=== PATIENT | female | born 1990 | race Caucasian/White ===

== ENCOUNTER 2018-02-12 14:36 | Inpatient (IN) ==
--- NOTE | 2018-02-12 16:06 | ED ---
HPI General Chief complaint: Dental/Oral Stated complaint: Throat problem Time Seen by Provider: 02/12/18 15:43 Source: patient Mode of arrival: ambulatory Limitations: no limitations History of Present Illness HPI narrative: Patient is a 27-year-old female presenting to emerge from for evaluation of throat pain. Patient states started a week and half ago. She has been to the emergency department in [place] twice in the last week. She reports being on multiple antibiotics with no improvement in her symptoms. Patient states it difficult to swallow and she spits out oral secretions rather than swallowing them due to the pain. Patient states she feels short of breath when she lays flat. She reports fevers from 100 up to 104. Patient denies any nausea, vomiting, headache, chest pain. Patient states she has had recurrent tonsillitis for years. Onset (ago): week(s) (1) Radiation: non-radiation Severity: severe Severity scale (1-10): 9 Quality: burning and aching Pain Consistency: constant Relieving factors: none Exacerbating factors: eating Associated symptoms: fever/chills and shortness of breath Treatments prior to arrival: other (Antibiotic) Related Data Home Medications Medication Instructions Recorded Confirmed amoxicillin-pot clavulanate Q8H 02/12/18 [Augmentin] prednisone DAILY 02/12/18 Allergies Allergy/AdvReac Type Severity Reaction Status Date / Time No Known Allergies Allergy Unverified 02/12/18 15:39 Review of Systems Except as stated in HPI: all other systems reviewed are negative PMFSH Medical History Medical History Cholecystectomy planned (Acute) Patient denies medical problems (Acute) Social History Social History Substance History: No History of Abuse Second Hand Smoke Exposure: No Smoking Status: Never smoker How Often Do You Have a Drink Containing Alcohol: Never Recent Travel in [place] within the Last 8 Weeks: No Recent Out of Country Travel within the Last 8 Weeks: No Immunization History Tetanus Immunization: <5 Years Tetanus Immunization Year if Known: 2012 Hx Influenza Vaccine This Season: Yes Exam Narrative Exam Narrative: GENERAL: Well-developed, well-nourished, alert female. Presenting in no acute distress. SKIN: Focused skin assessment warm/dry. HEAD: Atraumatic. Normocephalic. EYES: Pupils equal and round. No scleral icterus. No injection or drainage. ENT: No nasal bleeding or discharge. Mucous membranes pink and moist. NECK: Trachea midline. No JVD. CARDIOVASCULAR: Regular rate and rhythm. No murmur appreciated. RESPIRATORY: No accessory muscle use. Clear to auscultation. Breath sounds equal bilaterally. GASTROINTESTINAL: Abdomen soft, non-tender, nondistended. Hepatic and splenic margins not palpable. MUSCULOSKELETAL: No obvious deformities. No clubbing. No cyanosis. No edema. NEUROLOGICAL: Awake and alert. No obvious cranial nerve deficits. Motor grossly within normal limits. Normal speech. PSYCHIATRIC: Appropriate mood and affect; insight and judgment normal. HENMT Throat: uvula midline, abnormal tonsil bilaterally erythema, exudates and hypertrophy and posterior oropharynx abnormal erythema and exudates Course Initial Documented Vital Signs Temperature 99.8 F H 02/12/18 14:57 Pulse Rate 100 H 02/12/18 14:57 Respiratory Rate 17 02/12/18 14:57 Blood Pressure 151/74 H 02/12/18 14:57 Pulse Oximetry 96 02/12/18 14:57 Last Documented Vital Signs Temperature 99.8 F H 02/12/18 14:57 Pulse Rate 100 H 02/12/18 14:57 Respiratory Rate 17 02/12/18 14:57 Blood Pressure 151/74 H 02/12/18 14:57 Pulse Oximetry 97 02/12/18 15:50 Medical Decision Making JULIANN Attestation JULIANN supervised visit: Yes Attestation: I, Dr. Francois, have reviewed the advance practice practitioner's documentation and am in agreement, met with the patient face to face, made the diagnosis, and the medical decision making was done by me. *My assessment and Findings: This patient looks pretty miserable. Her oropharynx has erythema and edema and a grayish film especially on the tonsils. I have never actually seen diphtheria before but this looks like descriptions of diphtheria. Please see Lali Hoang NP's note for a more detailed H&P, final diagnosis and disposition MDM Narrative Medical decision making narrative: Patient is a 27-year-old female presenting for reevaluation of sore throat. Patient has significant tonsillar hypertrophy on exam. Medical records were requested from [facility] in [place]. Airways patent. Labs and imaging ordered and pending. Labs reviewed, no acute findings identified. Reviewed CT scan radiology report. Patient was also seen and evaluated by my attending physician. At this time patient is suspected to have contracted diphtheria. Patient will be started on erythromycin IV. We were then notified by pharmacy that erythromycin was unavailable and patient was switched to azithromycin. Patient was advised on findings and clinical plan. Patient is agreeable. Discussed with Dr. Sandoval, admit accepted. Admit orders placed. Differential Diagnosis Differential Diagnosis: Pharyngitis versus tonsillar abscess versus airway obstruction versus metabolic abnormality other Lab Data Result diagrams: 02/12/18 16:35 02/12/18 16:35 Lab Results 02/12/18 02/12/18 Range/Units 16:35 16:35 WBC 5.7 (4.0-11.0) th/mm3 RBC 4.86 (4.00-5.30) mil/mm3 Hgb 11.7 (11.6-15.3) gm/dL Hct 36.2 (35.0-46.0) % MCV 74.5 L (80.0-100.0) fL MCH 24.1 L (27.0-34.0) pg MCHC 32.4 (32.0-36.0) % RDW 16.9 (11.6-17.2) % Plt Count 226 (150-450) th/mm3 MPV 7.8 (7.0-11.0) fL Neut % (Auto) 67.8 (16.0-70.0) % Lymph % (Auto) 23.5 (9.0-44.0) % [place] % (Auto) 8.5 H (0.0-8.0) % Eos % (Auto) 0.0 (0.0-4.0) % Baso % (Auto) 0.2 (0.0-2.0) % Neut # (Auto) 3.9 (1.8-7.7) th/mm3 Lymph # (Auto) 1.3 (1.0-4.8) th/mm3 [place] # (Auto) 0.5 (0.0-0.9) th/mm3 Eos # (Auto) 0.0 (0.0-0.4) th/mm3 Baso # (Auto) 0.0 (0.0-0.2) th/mm3 WBC Differential . Differential Comment Auto diff final Sodium 140 (136-145) meq/L Potassium 4.2 (3.5-5.1) meq/L Chloride 106 (98-107) meq/L Carbon Dioxide 27.4 (21.0-32.0) meq/L Anion Gap 7 (5-15) meq/L BUN 19 H (7-18) mg/dL Creatinine 0.87 (0.50-1.00) mg/dL Estimated GFR 79 L (>89) mL/min Random Glucose 111 H (74-106) mg/dL Calcium 8.7 (8.5-10.1) mg/dL Total Bilirubin 0.4 (0.2-1.0) mg/dL AST 115 H (15-37) U/L ALT 144 H (10-53) U/L Alkaline Phosphatase 92 (45-117) U/L Total Protein 8.0 (6.4-8.2) g/dL Albumin 3.5 (3.4-5.0) g/dL Imaging Data Radiologist's impression: Soft Tissue Neck CT 02/12/18 15:50 CONCLUSION: 1. Prominent lingual tonsils with minimal nonspecific 5 to 7 mm lymph nodes in right left neck. 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
[2018-02-12 17:03] LABS: Baso % (Auto) 0.2 % (0.0-2.0); Hematocrit 36.2 % (35.0-46.0); Hemoglobin 11.7 gm/dL (11.6-15.3); Lymph # (Auto) 1.3 th/mm3 (1.0-4.8); Lymph % (Auto) 23.5 % (9.0-44.0); Mean Corpuscular HGB Conc 32.4 % (32.0-36.0); Mean Corpuscular Hemoglobin 24.1 pg (27.0-34.0); Mean Corpuscular Volume 74.5 fL (80.0-100.0); Mean Platelet Volume 7.8 fL (7.0-11.0); Mono # (Auto) 0.5 th/mm3 (0.0-0.9); Mono % (Auto) 8.5 % (0.0-8.0); Neut # (Auto) 3.9 th/mm3 (1.8-7.7); Neut % (Auto) 67.8 % (16.0-70.0); Platelet Count 226 th/mm3 (150-450); Red Blood Count 4.86 mil/mm3 (4.00-5.30); Red Cell Distribution Width 16.9 % (11.6-17.2); White Blood Count 5.7 th/mm3 (4.0-11.0)
[2018-02-12 17:13] LABS: Alanine Aminotransferase 144 U/L (10-53); Albumin 3.5 g/dL (3.4-5.0); Anion Gap 7 meq/L (5-15); Aspartate Aminotransferase 115 U/L (15-37); Blood Urea Nitrogen 19 mg/dL (7-18); Calcium 8.7 mg/dL (8.5-10.1); Carbon Dioxide 27.4 meq/L (21.0-32.0); Chloride 106 meq/L (98-107); Glomerular Filtration Rate 79 mL/min (>89); Glucose,Random 111 mg/dL (74-106); Potassium 4.2 meq/L (3.5-5.1); Sodium 140 meq/L (136-145)
[2018-02-12 17:15] LABS: Alkaline Phosphatase 92 U/L (45-117)
--- NOTE | 2018-02-12 17:37 | CT ---
EXAM DATE: 02/12/2018 5:17 PM EDT AGE/SEX: 27 years / Female INDICATIONS: Patient c/o "tonsils are white and hard" CLINICAL DATA: This is the patient's initial encounter. Patient reports that signs and symptoms have been present for 3 days and indicates a pain score of 10/10. MEDICAL/SURGICAL HISTORY: None. Cholecystectomy. RADIATION DOSE: 11.78 CTDI (mGy) COMPARISON: No prior exams available for comparison. TECHNIQUE: Helical acquisition was performed using a multirow detector CT scanner without contrast. Using automated exposure control and adjustment of the mA and/or kV according to patient size, radiat ion dose was kept as low as reasonably achievable to obtain optimal diagnostic quality images. DICOM format image data is available electronically for review and comparison. FINDINGS: Nasopharynx: The nasopharyngeal airway has a normal configuration. No mucosal thickening or mass is seen. Oropharynx: The intrinsic muscles of the tongue are symmetric. Lingual tonsils are prominent. The pr evertebral soft tissues are not thickened. Larynx: The supraglottic, glottic, and infraglottic structures are intact. Parapharyngeal: The parapharyngeal space is intact. Salivary Glands: The parotid and submandibular glands are intact. Lymph Nodes: Minimal nonspecific 5 to 7 mm lymph nodes are noted. Thyroid: Grossly intact. Bones: Unremarkable. CONCLUSION: 1. Prominent lingual tonsils with minimal nonspecific 5 to 7 mm lymph nodes in right left neck. Electronically signed by: Ed Hussein MD 02/12/2018 5:36 PM EDT
[2018-02-12] MEDS ORDERED: SODIUM CHLOR 0.9% IV.SIG ONE (17:47)
[2018-02-12] MEDS ORDERED: Sod Chloride 0.9% Inj 1,000 ML IV.SIG ONE (17:47)
[2018-02-12] MEDS ORDERED: ERYTHROMYCIN IV.SIG ONE (17:47)
[2018-02-12] MEDS ORDERED: Azithromycin Inj 500 MG in Sodium Chlor 0.9% Inj 250 ML IV.SIG ONE (17:59)
--- NOTE | 2018-02-12 18:02 | XR ---
EXAM DATE: 02/12/2018 5:58 PM EDT AGE/SEX: 27 years / Female INDICATIONS: Short of breath, cough CLINICAL DATA: This is the patient's initial encounter. Patient reports that signs and symptoms have been present for 2 weeks and indicates a pain score of 0/10. MEDICAL/SURGICAL HISTORY: None. Cholecystectomy. COMPARISON: No prior exams available for comparison. FINDINGS: A single AP view of the chest demonstrates the lungs to be symmetrically aerated without evidence of mass, infiltrate or effusion. The cardiomediastinal contours are unremarkable. Osseous structures a re intact. CONCLUSION: Negative for acute process Electronically signed by: Ed Hussein MD 02/12/2018 6:01 PM EDT
[2018-02-12] MEDS ORDERED: Bisacodyl 10 MG Supp RECTAL PRN (18:23)
[2018-02-12] MEDS ORDERED: Dexamethasone Inj 20 MG/5 ML Vial IV.PUSH ONE (19:19)
--- NOTE | 2018-02-12 19:25 | P.HPIM ---
History of Present Illness Primary Care Physician: No Primary Care Physician History of Present Illness: This is a 27-year-old female w/ a PMH of Recurrent Tonsillitis who presented to the ER w/ complaints of severe sore throat and decreased PO intake due to pain x2 wks. States she usually has 2-3 episodes like this every year w/ the same symptoms. Was seen at [facility] on several occasions for similar complaints, initially on Amoxicillin, then switched to Augment, later switched to Clarithromycin. Reports associated fever/chills in addition to nausea and vomiting. Unable to swallow liquids due to severe pain. On arrival, BP 151/74 , HR 100, O2 sat 96% on RA, Temp 99.8. CBC unremarkable. BUN 19, GFR 79. LFTs mildly elevated, no previous labs for comparison. CXR with no acute findings. CT Neck w/ prominent lingual tonsil w/ minimal nonspecific 5-7mm lymph nodes. On exam in ER, pt noted to have greyish film over tonsil and thought to have possible Diptheria, however pt has been vaccinated. Strep negative, Throat Culture pending. S/p Zithro in ER - Diagnosis (1) Tonsillitis Review of Systems All other systems reviewed negative except as stated in HPI PMFSH - History History Provided By: Patient - Medical History Medical History: Medical History (Last Reviewed 02/12/18 @ 16:04 by SUSY Woo) Cholecystectomy planned Patient denies medical problems - Tobacco History Second Hand Smoke Exposure: No Smoking Status: Never smoker - Alcohol History How Often Do You Have a Drink Containing Alcohol: Never - Substance Use History Substance History: No History of Abuse - Travel History Recent Travel in the USA Within the Last 8 Weeks: No Recent Travel Out of the Country Within the Last 8 Weeks: No - Immunization History Tetanus Immunization: <5 Years Tetanus Immunization Year if Known: 2012 Hx Influenza Vaccine This Season: Yes Medications and Allergies Active Medications: Active Medications Al Hydroxide/Mg Hydroxide (Milk Of Magnesia Liq) 30 ml PO Q12H PRN PRN Reason: Mild Constipation Bisacodyl (Dulcolax Supp) 10 mg RECTAL DAILY PRN PRN Reason: SEVERE CONSITIPATION Sodium Chloride (Ns Inj) 1,000 mls @ 100 mls/hr IV.CONT .Q10H DIANDRA Lactulose (Lactulose Liq) 30 ml PO DAILY PRN PRN Reason: SEVERE CONSITIPATION Sennosides (Senokot) 17.2 mg PO Q12H PRN PRN Reason: Moderate Constipation Sodium Chloride (Ns Flush) 2 ml IV.FLUSH PRN PRN PRN Reason: FLUSH AFTER USING IV ACCESS Allergies Allergy/AdvReac Type Severity Reaction Status Date / Time No Known Allergies Allergy Unverified 02/12/18 15:39 Home Medications Medication Instructions Recorded Confirmed Type amoxicillin-pot clavulanate Q8H 02/12/18 History [Augmentin] prednisone DAILY 02/12/18 History Exam Vital signs: Vital Signs 02/12/18 14:57 02/12/18 15:50 Temperature 99.8 F H Pulse Rate 100 H Respiratory Rate 17 Blood Pressure 151/74 H Pulse Oximetry 96 97 Intake & Output 02/12/18 02/12/18 02/13/18 06:59 18:59 06:59 Weight 85.275 kg Narrative: PE: GENERAL: Young white female in mild distress due to pain and nausea. HEENT: PERRLA, EOMI. No scleral icterus or conjunctival pallor. No lid lag or facial droop. Neck swelling, +tenderness to palpation, +pharyngeal erythema and enlarged tonsils, +exudate CARDIOVASCULAR: Regular rate and rhythm. No obvious murmurs to auscultation. No chest tenderness to palpation. RESPIRATORY: No obvious rhonchi or wheezing. Clear to auscultation. Breath sounds equal bilaterally. GASTROINTESTINAL: Abdomen soft, non-tender, nondistended. BS normal. MUSCULOSKELETAL: Extremities without clubbing, cyanosis, or edema. No obvious deformities. NEUROLOGICAL: Awake, alert and oriented x4. No focal neurologic deficits. Moving both upper and lower extremities spontaneously. Results - Labs CBC & Chem 7: 02/12/18 16:35 02/12/18 16:35 Labs: Short CBC 02/12/18 Range/Units 16:35 WBC 5.7 (4.0-11.0) th/mm3 Hgb 11.7 (11.6-15.3) gm/dL Hct 36.2 (35.0-46.0) % Plt Count 226 (150-450) th/mm3 BMP 02/12/18 16:35 Sodium 140 Potassium 4.2 Chloride 106 Carbon Dioxide 27.4 BUN 19 H Creatinine 0.87 Calcium 8.7 Liver Function 02/12/18 Range/Units 16:35 Total Bilirubin 0.4 (0.2-1.0) mg/dL AST 115 H (15-37) U/L ALT 144 H (10-53) U/L Alkaline Phosphatase 92 (45-117) U/L Albumin 3.5 (3.4-5.0) g/dL - Imaging Impressions Soft Tissue Neck CT 02/12/18 15:50 CONCLUSION: 1. Prominent lingual tonsils with minimal nonspecific 5 to 7 mm lymph nodes in right left neck. Chest X-Ray 02/12/18 17:46 CONCLUSION: Negative for acute process Caprini VTE Risk Assessment Caprini VTE Risk Assessment: No/Low Risk (score <= 1) Caprini Risk Assessment Model: Point Value = 1 Point Value = 2 Point Value = 3 Point Value = 5 Age 41-60 Minor surgery BMI > 25 kg/m2 Swollen legs Varicose veins or History of unexplained or recurrent spontaneous Oral contraceptives or hormone replacement Sepsis (< 1 month) Serious lung disease, including pneumonia (< 1 month) Abnormal pulmonary function Acute myocardial infarction Congestive heart failure (< 1 month) History of inflammatory bowel disease Medical patient at bed rest Age 61-74 Arthroscopic surgery Major open surgery (> 45 min) Laparoscopic surgery (> 45 min) Malignancy Confined to bed (> 72 hours) Immobilizing plaster cast Central venous access Age >= 75 History of VTE Family history of VTE Factor V Leiden Prothrombin [id number] Lupus anticoagulant Anticardiolipin antibodies Elevated serum homocysteine Heparin-induced thrombocytopenia Other congenital or acquired thrombophilia Stroke (< 1 month) Elective arthroplasty Hip, pelvis, or leg fracture Acute spinal cord injury (< 1 month) Prophylaxis Regimen: Total Risk Factor Score Risk Level Prophylaxis Regimen 0-1 Low Early ambulation 2 Moderate Order ONE of the following: *Sequential Compression Device (SCD) *Heparin 5000 units SQ BID 3-4 Higher Order ONE of the following medications: *Heparin 5000 units SQ TID *Enoxaparin/Lovenox 40 mg SQ daily (WT < 150 kg, CrCl > 30 mL/min) *Enoxaparin/Lovenox 30 mg SQ daily (WT < 150 kg, CrCl > 10-29 mL/min) *Enoxaparin/Lovenox 30 mg SQ BID (WT < 150 kg, CrCl > 30 mL/min) AND/OR *Sequential Compression Device (SCD) 5 or more Highest Order ONE of the following medications: *Heparin 5000 units SQ TID (Preferred with Epidurals) *Enoxaparin/Lovenox 40 mg SQ daily (WT < 150 kg, CrCl > 30 mL/min) *Enoxaparin/Lovenox 30 mg SQ daily (WT < 150 kg, CrCl > 10-29 mL/min) *Enoxaparin/Lovenox 30 mg SQ BID (WT < 150 kg, CrCl > 30 mL/min) AND *Sequential Compression Device (SCD) Assessment and Plan - Assessment (1) Tonsillitis Code(s): J03.90 - Acute tonsillitis, unspecified Status: Acute - Plan A/P: 1. Tonsillitis: w/ pharyngitis. Symptoms ongoing x2wks, failed tx on Amoxicillin, Augment and Clarithromycin. ER physician noted greyish film and concern for Diptheria, however prob unlikely as very rare and pt reports being vaccinated. Also reports similar episodes of tonsillitis approx 2-3 times per year. But in light of concern will continue w/ Isolation, follow up throat culture, Consult ID as needed if cultures positive for Diptheria. Erythromycin IV not available in pharmacy, will continue w/ IV Zithro. Viscous Lidocaine prn , Decadron IV. Will Consult ENT for further eval/surgical intervention. 2. DVT Prophylaxis: SCD/Teds 3. Social work for d/c planning as needed 4. Case discussed w/ ER physician at length, labs/records/imaging reviewed by me.
[2018-02-13] MEDS ORDERED: ERYTHROMYCIN IV.SIG SCH ×2
[2018-02-13] MEDS ORDERED: SODIUM CHLOR 0.9% IV.SIG SCH ×2
[2018-02-13] MEDS: Sod Chloride 0.9% Inj 1,000 ML IV.CONT SCH ×2 (01:07→05:59)
[2018-02-13 06:21] LABS: Baso % (Auto) 0.4 % (0.0-2.0); Eos % (Auto) 0.4 % (0.0-4.0); Hematocrit 32.8 % (35.0-46.0); Lymph # (Auto) 2.2 th/mm3 (1.0-4.8); Lymph % (Auto) 36.8 % (9.0-44.0); Mean Corpuscular HGB Conc 33.5 % (32.0-36.0); Mean Corpuscular Hemoglobin 24.6 pg (27.0-34.0); Mean Corpuscular Volume 73.5 fL (80.0-100.0); Mean Platelet Volume 7.7 fL (7.0-11.0); Mono # (Auto) 0.7 th/mm3 (0.0-0.9); Mono % (Auto) 12.1 % (0.0-8.0); Neut % (Auto) 50.3 % (16.0-70.0); Platelet Count 189 th/mm3 (150-450); Red Blood Count 4.46 mil/mm3 (4.00-5.30); Red Cell Distribution Width 16.7 % (11.6-17.2)
[2018-02-13 07:00] LABS: Albumin 3.1 g/dL (3.4-5.0); Anion Gap 7 meq/L (5-15); Aspartate Aminotransferase 93 U/L (15-37); Blood Urea Nitrogen 19 mg/dL (7-18); Carbon Dioxide 26.8 meq/L (21.0-32.0); Chloride 107 meq/L (98-107); Glomerular Filtration Rate Greater Than 89 mL/min (>89); Glucose,Random 80 mg/dL (74-106); Potassium 3.7 meq/L (3.5-5.1); Sodium 141 meq/L (136-145)
[2018-02-13 07:01] LABS: Alanine Aminotransferase 137 U/L (10-53)
[2018-02-13 07:04] LABS: Alkaline Phosphatase 84 U/L (45-117); Total Protein 7.3 g/dL (6.4-8.2)
--- NOTE | 2018-02-13 09:54 | P.PN ---
Subjective Interval history: Follow-up sore throat. Improving throat discomfort requesting food. Discussed with nurse, ENT has recommended to continue IV antibiotics for 1-2 days Physical Exam Vital signs: Vital Signs 02/12/18 14:57 02/12/18 15:50 02/12/18 20:00 Temperature 99.8 F H 97.9 F Pulse Rate 100 H 78 Respiratory Rate 17 17 Blood Pressure 151/74 H 130/60 Pulse Oximetry 96 97 97 02/13/18 00:00 02/13/18 04:00 Temperature 97.9 F 98.0 F Pulse Rate 74 70 Respiratory Rate 16 14 Blood Pressure 133/65 120/60 Pulse Oximetry 96 95 Intake & Output 02/12/18 02/13/18 02/13/18 18:59 06:59 18:59 Weight 85.275 kg Narrative: GENERAL: Young white female in mild distress due to pain and nausea. HEENT: PERRLA, EOMI. No scleral icterus or conjunctival pallor. No lid lag or facial droop. Neck swelling, +tenderness to palpation, +pharyngeal erythema and enlarged tonsils, +exudate CARDIOVASCULAR: Regular rate and rhythm. No obvious murmurs to auscultation. No chest tenderness to palpation. RESPIRATORY: No obvious rhonchi or wheezing. Clear to auscultation. Breath sounds equal bilaterally. GASTROINTESTINAL: Abdomen soft, non-tender, nondistended. BS normal. MUSCULOSKELETAL: Extremities without clubbing, cyanosis, or edema. No obvious deformities. NEUROLOGICAL: Awake, alert and oriented x4. No focal neurologic deficits. Moving both upper and lower extremities spontaneously. Results - Labs CBC & Chem 7: 02/13/18 05:49 02/13/18 05:49 Laboratory Results - last 24 hr 02/12/18 02/12/18 02/13/18 16:35 16:35 05:49 WBC 5.7 6.0 RBC 4.86 4.46 Hgb 11.7 11.0 L Hct 36.2 32.8 L MCV 74.5 L 73.5 L MCH 24.1 L 24.6 L MCHC 32.4 33.5 RDW 16.9 16.7 Plt Count 226 189 MPV 7.8 7.7 Neut % (Auto) 67.8 50.3 Lymph % (Auto) 23.5 36.8 [place] % (Auto) 8.5 H 12.1 H Eos % (Auto) 0.0 0.4 Baso % (Auto) 0.2 0.4 Neut # (Auto) 3.9 3.0 Lymph # (Auto) 1.3 2.2 [place] # (Auto) 0.5 0.7 Eos # (Auto) 0.0 0.0 Baso # (Auto) 0.0 0.0 WBC Differential . . Differential Comment Auto diff final Auto diff final Sodium 140 Potassium 4.2 Chloride 106 Carbon Dioxide 27.4 Anion Gap 7 BUN 19 H Creatinine 0.87 Estimated GFR 79 L Random Glucose 111 H Calcium 8.7 Total Bilirubin 0.4 AST 115 H ALT 144 H Alkaline Phosphatase 92 Total Protein 8.0 Albumin 3.5 02/13/18 05:49 WBC RBC Hgb Hct MCV MCH MCHC RDW Plt Count MPV Neut % (Auto) Lymph % (Auto) [place] % (Auto) Eos % (Auto) Baso % (Auto) Neut # (Auto) Lymph # (Auto) [place] # (Auto) Eos # (Auto) Baso # (Auto) WBC Differential Differential Comment Sodium 141 Potassium 3.7 Chloride 107 Carbon Dioxide 26.8 Anion Gap 7 BUN 19 H Creatinine 0.73 Estimated GFR Greater than 89 Random Glucose 80 Calcium 8.0 L Total Bilirubin 0.4 AST 93 H ALT 137 H Alkaline Phosphatase 84 Total Protein 7.3 D Albumin 3.1 L Microbiology 02/12/18 16:45 Throat Group A Streptococcus Screen (COREY) - Final - Imaging Impressions Soft Tissue Neck CT 02/12/18 15:50 CONCLUSION: 1. Prominent lingual tonsils with minimal nonspecific 5 to 7 mm lymph nodes in right left neck. Chest X-Ray 02/12/18 17:46 CONCLUSION: Negative for acute process - Procedures none Assessment and Plan - Assessment (1) Tonsillitis Code(s): J03.90 - Acute tonsillitis, unspecified Status: Acute - Plan 1. Tonsillitis: w/ pharyngitis. Symptoms ongoing x2wks, failed tx on Amoxicillin, Augment and Clarithromycin. ER physician noted greyish film and concern for Diptheria, however prob unlikely as very rare and pt reports being vaccinated. Also reports similar episodes of tonsillitis approx 2-3 times per year. But in light of concern will continue w/ Isolation, follow up throat culture, Consult ID as needed if cultures positive for Diphtheria. Erythromycin IV not available in pharmacy, will continue w/ IV Zithro. Viscous Lidocaine prn, Decadron IV. Will Consult ENT for further eval/surgical intervention. In light of abnormal LFTs, check monospot r/o Infectious mononucleosis 2. DVT Prophylaxis: SCD/Teds Discharge Planning: Home in 1-2 days
[2018-02-13 12:32] LABS: Mono Screen Neg (Neg)
--- NOTE | 2018-02-13 17:50 | US ---
EXAM DATE: 02/13/2018 5:43 PM EDT AGE/SEX: 27 years / Female INDICATIONS: Abnormal liver function tests. CLINICAL DATA: This is the patient's initial encounter. Patient reports that signs and symptoms have been present for 1 day and indicates a pain score of 0/10. MEDICAL/SURGICAL HISTORY: . Abnormal liver function tests. Cholecystectomy. COMPARISON: No prior exams available for comparison. MEASUREMENTS: Liver:__ 15.6 cm. Common Bile Duct:__ 7mm. Right Kidney:__ 10.7 x 4.7 x 5.5 cm. FINDINGS: Liver: Increased echotexture without focal lesion or ductal dilation. Portal Vein: Hepatopedal flow seen in portal vein. Common Duct: No intraluminal mass or stone visualized. Prominent in caliber up to 7.2 mm. This may be related to a reservoir effect from cholecystectomy. Gallbladder: Surgically absent. Pancreas: The visualized portions are within normal limits Right Kidney: Normal echotexture and cortical thickness. No mass or hydronephrosis. Other: The spleen measures up to 14.9 cm. CONCLUSION: 1. Mildly prominent common bile duct in this patient who is status post cholecystectomy. 2. Splenomegaly. Electronically signed by: Tate Rayo MD 02/13/2018 5:49 PM EDT
[2018-02-13] MEDS: Azithromycin Inj 500 MG in Sodium Chlor 0.9% Inj 250 ML IV.SIG SCH (20:30)
[2018-02-13 21:15] LABS: Hepatitits B Surface Antigen Nonreactive (Nonreactive)
[2018-02-13 21:42] LABS: Hepatitis A IgM Antibody Nonreactive (Nonreactive)
[2018-02-14] MEDS: Sod Chloride 0.9% Inj 1,000 ML IV.CONT SCH ×3 (05:10→13:39)
--- NOTE | 2018-02-14 07:38 | MD ---
cc: Geoff Ta MD DATE OF DISCHARGE: HISTORY: This is a 29-year-old female with 3 episodes of tonsillitis every year or more for 15 years in a row with a severe episode of tonsillitis having difficulty taking food or drink. PHYSICAL EXAM: Today, a well-appearing female in no acute distress tolerating own secretions. Excellent airway. No hot potato voice. EARS: WNL. NOSE: Nasal cavity WNL. ORAL CAVITY: Reveals moderately severe bilateral follicular tonsillitis without uvular deviation. No masses. Flexible exam, good vocal cord mobility. No airway obstruction. No lingual tonsillitis. NECK: Soft, supple, but tender. IMPRESSION: Severe follicular tonsillitis. PLAN: Continue IV steroids and antibiotics. Consideration for tonsillectomy in 6-8 weeks. Outpatient followup. MD JORGE Mcneill/MAHOGANY , 07:27 AM , 07:32 AM
[2018-02-14 07:59] LABS: Albumin 2.8 g/dL (3.4-5.0); Anion Gap 9 meq/L (5-15); Aspartate Aminotransferase 43 U/L (15-37); Blood Urea Nitrogen 10 mg/dL (7-18); Calcium 7.9 mg/dL (8.5-10.1); Chloride 106 meq/L (98-107); Glomerular Filtration Rate Greater Than 89 mL/min (>89); Glucose,Random 80 mg/dL (74-106); Potassium 3.9 meq/L (3.5-5.1); Sodium 138 meq/L (136-145)
[2018-02-14 08:01] LABS: Alanine Aminotransferase 102 U/L (10-53)
[2018-02-14 08:02] LABS: Alkaline Phosphatase 80 U/L (45-117); Total Protein 6.9 g/dL (6.4-8.2)
--- NOTE | 2018-02-14 11:54 | P.PN ---
Subjective Interval history: Follow-up visit pharyngitis, severe tonsillitis. Patient seen and examined today. Continues to report cough. Not expectorating anything. Continues to complain of painful swallowing. Unable to tolerate current diet with grits. Discussed with patient we will place her on liquid diet. Has not tried Jell-O yet. Reports pain and discomfort right facial side towards the neck. Continues to have edema on that side. Denies SOB/ dyspnea. Denies chest pain, palpitations, headaches, dizziness. Denies fevers, chills, n/v/d. Denies dysuria. Complaints of constipation. Physical Exam Vital signs: Vital Signs 02/13/18 12:00 02/13/18 15:49 02/13/18 15:57 Temperature 97.8 F 98.5 F Pulse Rate 90 85 Respiratory Rate 18 20 Blood Pressure 121/74 137/76 126/83 Pulse Oximetry 94 L 96 02/13/18 20:00 02/14/18 00:00 02/14/18 04:00 Temperature 99.1 F 98.3 F Pulse Rate 89 88 81 Respiratory Rate 18 16 18 Blood Pressure 141/82 H 129/85 121/79 Pulse Oximetry 97 96 02/14/18 08:56 Temperature 98.2 F Pulse Rate 71 Respiratory Rate 18 Blood Pressure 135/83 Pulse Oximetry 98 Intake & Output 02/13/18 02/14/18 02/14/18 18:59 06:59 18:59 Intake Total 1000 / 1000 250 / 250 Balance 1000 / 1000 250 / 250 Intake: IV 1000 / 1000 250 / 250 NS Inj 1,000 ML @ 100 mls/hr IV 1000 / 1000 .CONT .Q10H DIANDRA Rx#:[id number] Azithromycin Inj 500 MG In NS 250 / 250 Inj 250 ML @ 250 mls/hr IV.SIG Q24H DIANDR[facility] Rx#:[id number] Oral 0 / 0 Other: # Voids 1 1 Date of Last Bowel Movement 02/11/18 Narrative: GENERAL: Young white female in mild distress due to pain and nausea. HEENT: PERRLA, EOMI. No scleral icterus or conjunctival pallor. No lid lag or facial droop. Neck swelling, +tenderness to palpation, +pharyngeal erythema and enlarged tonsils, +exudate. Positive lymph adenopathy CARDIOVASCULAR: Regular rate and rhythm. No obvious murmurs to auscultation. No chest tenderness to palpation. RESPIRATORY: No obvious rhonchi or wheezing. Clear to auscultation. Breath sounds equal bilaterally. GASTROINTESTINAL: Abdomen soft, non-tender, nondistended. BS normal. MUSCULOSKELETAL: Extremities without clubbing, cyanosis, or edema. No obvious deformities. NEUROLOGICAL: Awake, alert and oriented x4. No focal neurologic deficits. Moving both upper and lower extremities spontaneously. Results - Labs CBC & Chem 7: 02/13/18 05:49 02/14/18 06:00 Laboratory Results - last 24 hr 02/13/18 02/13/18 02/14/18 11:27 15:00 06:00 Sodium 138 Potassium 3.9 Chloride 106 Carbon Dioxide 23.0 Anion Gap 9 BUN 10 Creatinine 0.60 Estimated GFR Greater than 89 Random Glucose 80 Calcium 7.9 L Total Bilirubin 0.4 AST 43 H ALT 102 H Alkaline Phosphatase 80 Total Protein 6.9 Albumin 2.8 L Hepatitis A IgM Ab Nonreactive Hep Bs Antigen Nonreactive Hep B Core IgM Ab Nonreactive Hep C IgG Ab Nonreactive Monoscreen Neg Microbiology 02/12/18 16:45 Throat Throat Culture - Final - Imaging Impressions Liver Ultrasound 02/13/18 00:00 CONCLUSION: 1. Mildly prominent common bile duct in this patient who is status post cholecystectomy. 2. Splenomegaly. - Procedures none Assessment and Plan - Assessment (1) Tonsillitis Code(s): J03.90 - Acute tonsillitis, unspecified Status: Acute - Plan 27-year-old female w/ a PMH of Recurrent Tonsillitis who presented to the ER w/ complaints of severe sore throat and decreased PO intake due to pain x2 wks Tonsillitis w/ pharyngitis. Severe follicular tonsillitis -Symptoms ongoing x2wks, failed tx on Amoxicillin, Augment and Clarithromycin. -ER physician noted greyish film and concern for Diptheria, however prob unlikely as very rare and pt reports being vaccinated. continue w/ Isolation -Reports similar episodes of tonsillitis approx 2-3 times per year. -Negative for group a streptococcus screen, negative for throat culture. Negative mono. -Severe lymphadenopathy. Odynophagia. -Continue on IV azithromycin. Consult ID for further evaluation recommendation -Patient was seen by Dr. Ta ENT recommends to continue IV steroids and IV antibiotics. Plan for tonsillectomy 6-8 weeks. -Continue lidocaine as needed. Liquid diet. Constipation -Bowel regimen DVT Prophylaxis: SCD/Teds Code Status: Full code Discussed Condition With: Patient, nursing Discharge Planning: Plan to DC home when clinically improved.
--- NOTE | 2018-02-14 16:34 | P.CONID ---
History of Present Illness Service: ID Consult date: 02/14/18 Requesting Physician: Van Kim Reason for Consult: pharyngitis Primary Care Provider: No Primary Care Physician History of Present Illness: 27 yo female with no past med history presentes with 2 weeks of persistent sore throat, low grade fever and neck pain and swelling Her neck is swollen two During these 2 weeks sjhe was treated with multiple abx including azithromycin, clindamycin and augmentin. Alll without improvement She constantly cough thru the exam She was tested for GAS, monospot and clx and they all negative throat clx with nl resp jaydon NO sick exposure Lives with 3 children 2-6 y.o. They are healthy Recent (October) travel to [place] reason She was tested for HIV in October since she frequently donates egg. Her hIV test is negative MIld anemia She also c/o vaginal discharge and dyscomfort Pt states she is up to date on her immunisations Review of Systems All other systems reviewed negative except as stated in HPI PMFSH - History History Provided By: Patient - Medical History Medical History: Medical History (Last Reviewed 04/10/18 @ 12:48 by Joelle Joel MD) Cholecystectomy planned Patient denies medical problems - Family History Family History: Family History (Last Updated 04/10/18 @ 12:48 by Joelle Joel MD) Other No pertinent family history - Social History I have reviewed the patient's Social History: Yes - Tobacco History Second Hand Smoke Exposure: No Smoking Status: Never smoker - Alcohol History How Often Do You Have a Drink Containing Alcohol: Never - Substance Use History Substance History: No History of Abuse - Travel History Recent Travel in the [place] Within the Last 8 Weeks: No Recent Travel Out of the Country Within the Last 8 Weeks: No - Immunization History Tetanus Immunization: <5 Years Tetanus Immunization Year if Known: 2012 Hx Influenza Vaccine This Season: Yes Medications and Allergies Active Medications: Active Medications Al Hydroxide/Mg Hydroxide (Milk Of Magnesia Liq) 30 ml PO Q12H PRN PRN Reason: Mild Constipation Bisacodyl (Dulcolax Supp) 10 mg RECTAL DAILY PRN PRN Reason: SEVERE CONSITIPATION Dexamethasone Sodium Phosphate (Decadron Inj) 2 mg IV.PUSH Q8HR DIAN[facility] Last Admin: 02/14/18 13:39 Dose: 2 mg Sodium Chloride (Ns Inj) 1,000 mls @ 100 mls/hr IV.CONT .[facility]10H [facility] Last Admin: 02/14/18 13:39 Dose: 100 mls/hr Azithromycin 500 mg/ Sodium (Chloride) 250 mls @ 250 mls/hr IV.SIG Q24H [facility] Last Infusion: 02/13/18 21:30 Dose: Infused Lactulose (Lactulose Liq) 30 ml PO DAILY PRN PRN Reason: SEVERE CONSITIPATION Lidocaine HCl (Xylocaine 2% Viscous) 15 ml SWISH-SWAL Q4H PRN PRN Reason: SORE THROAT Last Admin: 02/13/18 05:58 Dose: 15 ml Ondansetron HCl (Zofran Odt) 4 mg PO Q6H PRN PRN Reason: NAUSEA/VOMITING Prochlorperazine Edisylate (Compazine Inj) 10 mg IV.PUSH Q6H PRN PRN Reason: NAUSEA/VOMITING Sennosides (Senokot) 17.2 mg PO Q12H PRN PRN Reason: Moderate Constipation Sodium Chloride (Ns Flush) 2 ml IV.FLUSH PRN PRN PRN Reason: FLUSH AFTER USING IV ACCESS Allergies Allergy/AdvReac Type Severity Reaction Status Date / Time No Known Allergies Allergy Unverified 02/12/18 15:39 Exam Vital signs: Vital Signs 02/13/18 15:49 02/13/18 15:57 02/13/18 20:00 Temperature 98.5 F 99.1 F Pulse Rate 85 89 Respiratory Rate 20 18 Blood Pressure 137/76 126/83 141/82 H Pulse Oximetry 96 97 02/14/18 00:00 02/14/18 04:00 02/14/18 08:56 Temperature 98.3 F 98.2 F Pulse Rate 88 81 71 Respiratory Rate 16 18 18 Blood Pressure 129/85 121/79 135/83 Pulse Oximetry 96 98 02/14/18 12:00 Temperature 98.2 F Pulse Rate 85 Respiratory Rate 16 Blood Pressure 123/78 Pulse Oximetry 98 Intake & Output 02/13/18 02/14/18 02/14/18 18:59 06:59 18:59 Intake Total 1000 / 1000 250 / 250 1000 / 1000 Balance 1000 / 1000 250 / 250 1000 / 1000 Intake: IV 1000 / 1000 250 / 250 1000 / 1000 NS Inj 1,000 ML @ 100 mls/hr IV 1000 / 1000 1000 / 1000 .CONT .Q10H [facility] Rx#:[id number] Azithromycin Inj 500 MG In NS 250 / 250 Inj 250 ML @ 250 mls/hr IV.SIG Q24H [facility] Rx#:[id number] Oral 0 / 0 Other: # Voids 1 1 Date of Last Bowel Movement 02/11/18 - Constitutional no acute distress, obese - Routine HEENT Exam Head: Present: normocephalic, atraumatic Eye: Present: EOMI, PERRL ENT: Present: mucous membranes moist, external ear normal Comments: Markedly enlarged tosils covereg with graham membranes, more prominnet on the R tonsil + shotty lymphadenopathy - Routine Neck Exam Present: supple, full ROM, lymphadenopathy (shotty b/l) - Routine Respiratory Exam Present: CTA bilaterally Comments: good effort - Routine Cardiovascular Exam Present: RRR, S1, S2 Comments: no murmurs, rubs gallops well perfused perifery - Routine Abdominal Exam Present: soft, normoactive bowel sounds Comments: no palpabler spleno or hepatomegaly no masses - Routine Exam External: Present: normal urethra appearance, vulvar erythema, discharge - Routine Extremities Exam Comments: mno cyanosis. clubbbing or edema - Routine Skin Exam Present: intact Comments: no rash + tender blister on R foot - Routine Neurological Exam Present: alert, oriented X3, CN II-XII intact, moving all extremities, vision grossly intact, hearing grossly intact, normal speech - Routine Psychiatric Exam Present: normal affect, cooperative Results - Labs CBC & Chem 7: 02/17/18 04:00 02/17/18 04:00 Labs: Laboratory Results - last 24 hr 02/13/18 02/14/18 15:00 06:00 Sodium 138 Potassium 3.9 Chloride 106 Carbon Dioxide 23.0 Anion Gap 9 BUN 10 Creatinine 0.60 Estimated GFR Greater than 89 Random Glucose 80 Calcium 7.9 L Total Bilirubin 0.4 AST 43 H ALT 102 H Alkaline Phosphatase 80 Total Protein 6.9 Albumin 2.8 L Hepatitis A IgM Ab Nonreactive Hep Bs Antigen Nonreactive Hep B Core IgM Ab Nonreactive Hep C IgG Ab Nonreactive - Imaging Impressions Soft Tissue Neck CT 02/12/18 15:50 CONCLUSION: 1. Prominent lingual tonsils with minimal nonspecific 5 to 7 mm lymph nodes in right left neck. Chest X-Ray 02/12/18 17:46 CONCLUSION: Negative for acute process Liver Ultrasound 02/13/18 00:00 CONCLUSION: 1. Mildly prominent common bile duct in this patient who is status post cholecystectomy. 2. Splenomegaly. Assessment and Plan - Plan 2 weeks acute pharyngitis non resolving on multiplae abx, splenomegaly Differentila include tonsilitist, including viral dyphtheria uinlikely in this immunised pt will cont azithro will add Unasyn HIV, including r/o acute retroviral sd EKG
[2018-02-14] MEDS: Ampicillin/Sulbactam Inj 3 GM in Sodium Chloride 0.9% Inj 100 ML IV.SIG SCH ×2 (16:53→22:45)
[2018-02-14] MEDS: Nystatin/Diphenhydramine/Lidocaine Mouthwash (Adult) 120 ML Botttle SWISH-SWAL SCH ×2 (18:18→22:11)
[2018-02-14] MEDS: Azithromycin Inj 500 MG in Sodium Chlor 0.9% Inj 250 ML IV.SIG SCH (20:37)
[2018-02-14] MEDS: Senna/Docusate Sodium 8.6/50 MG Tablet PO SCH (22:13)
[2018-02-15] MEDS: Sod Chloride 0.9% Inj 1,000 ML IV.CONT SCH ×3 (01:26→20:03)
[2018-02-15 05:18] LABS: Baso % (Auto) 0.4 % (0.0-2.0); Eos % (Auto) 0.1 % (0.0-4.0); Hematocrit 33.6 % (35.0-46.0); Hemoglobin 10.7 gm/dL (11.6-15.3); Lymph # (Auto) 1.7 th/mm3 (1.0-4.8); Lymph % (Auto) 21.7 % (9.0-44.0); Mean Corpuscular HGB Conc 31.9 % (32.0-36.0); Mean Corpuscular Hemoglobin 23.7 pg (27.0-34.0); Mean Corpuscular Volume 74.2 fL (80.0-100.0); Mean Platelet Volume 7.8 fL (7.0-11.0); Mono # (Auto) 0.7 th/mm3 (0.0-0.9); Mono % (Auto) 9.7 % (0.0-8.0); Neut # (Auto) 5.3 th/mm3 (1.8-7.7); Neut % (Auto) 68.1 % (16.0-70.0); Platelet Count 233 th/mm3 (150-450); Red Blood Count 4.53 mil/mm3 (4.00-5.30); Red Cell Distribution Width 16.6 % (11.6-17.2); White Blood Count 7.8 th/mm3 (4.0-11.0)
[2018-02-15] MEDS: Ampicillin/Sulbactam Inj 3 GM in Sodium Chloride 0.9% Inj 100 ML IV.SIG SCH ×4 (05:18→23:29)
[2018-02-15 05:36] LABS: Albumin 2.8 g/dL (3.4-5.0); Anion Gap 6 meq/L (5-15); Aspartate Aminotransferase 23 U/L (15-37); Blood Urea Nitrogen 10 mg/dL (7-18); Calcium 8.3 mg/dL (8.5-10.1); Carbon Dioxide 26.8 meq/L (21.0-32.0); Chloride 106 meq/L (98-107); Glomerular Filtration Rate Greater Than 89 mL/min (>89); Glucose,Random 99 mg/dL (74-106); Potassium 4.1 meq/L (3.5-5.1); Sodium 139 meq/L (136-145)
[2018-02-15 05:37] LABS: Alanine Aminotransferase 78 U/L (10-53)
[2018-02-15 05:39] LABS: Alkaline Phosphatase 85 U/L (45-117); Total Protein 7.2 g/dL (6.4-8.2)
[2018-02-15] MEDS ORDERED: Fluconazole 100 MG Tablet PO ONE (10:31)
--- NOTE | 2018-02-15 10:31 | P.PNID ---
Subjective Remarks: slightly better no fever pain worse on R side HIV DAAN neg Antibiotics: azithro unasyn Allergies/Adverse Reactions: Allergies No Known Allergies Allergy (Unverified 02/12/18 15:39) Objective Vital Signs 02/14/18 12:00 02/14/18 16:00 02/14/18 20:00 Temperature 98.2 F 98.5 F 98.5 F Pulse Rate 85 76 82 Respiratory Rate 16 16 16 Blood Pressure 123/78 131/83 126/78 Pulse Oximetry 98 97 97 02/15/18 00:00 02/15/18 04:00 02/15/18 08:00 Temperature 98.3 F 98.3 F 99.0 F Pulse Rate 84 86 71 Respiratory Rate 16 16 16 Blood Pressure 121/73 118/75 138/80 Pulse Oximetry 99 100 99 Intake & Output 02/14/18 02/15/18 02/15/18 18:59 06:59 18:59 Intake Total 1100 / 1100 3720 / 3720 Balance 1100 / 1100 3720 / 3720 Intake: IV 1100 / 1100 2800 / 2800 NS Inj 1,000 ML @ 100 mls/hr IV 1000 / 1000 1000 / 1000 .CONT .Q10H DIAN[facility] Rx#:[id number] Unasyn Inj 3 GM In NS Inj 100 100 / 100 200 / 200 ML @ 200 mls/hr IV.SIG Q6H DIAN[facility] Rx#:[id number] Azithromycin Inj 500 MG In NS 250 / 250 Inj 250 ML @ 250 mls/hr IV.SIG Q24H DIAN[facility] Rx#:[id number] Oral 920 / 920 Other: # Voids 3 Date of Last Bowel Movement 02/10/18 02/12/18 16:45 Throat Throat Culture - Final 02/12/18 16:45 Throat Group A Streptococcus Screen ([facility]) - Final Lab - Hematology Results 02/15/18 04:48 WBC 7.8 RBC 4.53 Hgb 10.7 L Hct 33.6 L MCV 74.2 L MCH 23.7 L MCHC 31.9 L RDW 16.6 Plt Count 233 MPV 7.8 Neut % (Auto) 68.1 Lymph % (Auto) 21.7 [place] % (Auto) 9.7 H Eos % (Auto) 0.1 Baso % (Auto) 0.4 Neut # (Auto) 5.3 Lymph # (Auto) 1.7 [place] # (Auto) 0.7 Eos # (Auto) 0.0 Baso # (Auto) 0.0 WBC Differential . Differential Comment Auto diff final Lab - Chemistry Results 02/14/18 02/15/18 06:00 04:48 Sodium 138 139 Potassium 3.9 4.1 Chloride 106 106 Carbon Dioxide 23.0 26.8 Anion Gap 9 6 BUN 10 10 Creatinine 0.60 0.64 Estimated GFR Greater than 89 Greater than 89 Random Glucose 80 99 Calcium 7.9 L 8.3 L Total Bilirubin 0.4 0.3 AST 43 H 23 ALT 102 H 78 H Alkaline Phosphatase 80 85 Total Protein 6.9 7.2 Albumin 2.8 L 2.8 L Imaging: ITS Impressions Soft Tissue Neck CT 02/12/18 15:50 CONCLUSION: 1. Prominent lingual tonsils with minimal nonspecific 5 to 7 mm lymph nodes in right left neck. Chest X-Ray 02/12/18 17:46 CONCLUSION: Negative for acute process Liver Ultrasound 02/13/18 00:00 CONCLUSION: 1. Mildly prominent common bile duct in this patient who is status post cholecystectomy. 2. Splenomegaly. Physical Exam: GENERAL: NAD SKIN: Warm and dry. HEAD: Atraumatic. Normocephalic. EYES: Pupils equal and round. No scleral icterus. No injection or drainage. ENT: No nasal bleeding or discharge. Mucous membranes pink and moist. Markeldy enlarged inflammed tonsils especially R side, covered with white and graham membrabnes' NECK: Trachea midline. No JVD. + b/l cervical lymphadenopathy CARDIOVASCULAR: Regular rate and rhythm. RESPIRATORY: No accessory muscle use. Clear to auscultation. Breath sounds equal bilaterally. GASTROINTESTINAL: Abdomen soft, non-tender, nondistended. Hepatic and splenic margins not palpable. MUSCULOSKELETAL: Extremities without clubbing, cyanosis, or edema. No obvious deformities. NEUROLOGICAL: Awake and alert. No obvious cranial nerve deficits. Motor grossly within normal limits. Five out of 5 muscle strength in the arms and legs. Normal speech. PSYCHIATRIC: Appropriate mood and affect; insight and judgment normal. Assessment and Plan - Plan 2 weeks pharyngitis non resolving on multiplae abx, splenomegaly splenomegaly is borderline Differentila include tonsilitist, including viral dyphtheria uinlikely in this immunised pt vaginal dc, dburning - probably yeast infx aw abx dc azithro cont Unasyn Fluconazol awaiting viral load to r/o acute retroviral EKG
[2018-02-15] MEDS: Senna/Docusate Sodium 8.6/50 MG Tablet PO SCH ×2 (10:44→23:28)
[2018-02-15] MEDS: Nystatin/Diphenhydramine/Lidocaine Mouthwash (Adult) 120 ML Botttle SWISH-SWAL SCH ×4 (13:25→23:26)
--- NOTE | 2018-02-15 13:28 | P.PN ---
Subjective Interval history: Follow-up visit pharyngitis, severe tonsillitis. Patient seen and examined today. Continues to report occasional cough when taking deep breaths. Not expectorating anything. Continues to complain of painful swallowing. States that Magic mouthwash was able to help her a little bit. Complains of pain all over. Denies any fevers, chills, nausea, vomiting, diarrhea. Reports constipation. Denies chest pain, palpitations. Denies shortness of breath or dyspnea. Physical Exam Vital signs: Vital Signs 02/14/18 16:00 02/14/18 20:00 02/15/18 00:00 Temperature 98.5 F 98.5 F 98.3 F Pulse Rate 76 82 84 Respiratory Rate 16 16 16 Blood Pressure 131/83 126/78 121/73 Pulse Oximetry 97 97 99 02/15/18 04:00 02/15/18 08:00 02/15/18 12:00 Temperature 98.3 F 99.0 F 98.7 F Pulse Rate 86 71 69 Respiratory Rate 16 16 16 Blood Pressure 118/75 138/80 134/80 Pulse Oximetry 100 99 99 Intake & Output 02/14/18 02/15/18 02/15/18 18:59 06:59 18:59 Intake Total 1100 / 1100 3720 / 3720 Balance 1100 / 1100 3720 / 3720 Intake: IV 1100 / 1100 2800 / 2800 NS Inj 1,000 ML @ 100 mls/hr IV 1000 / 1000 1000 / 1000 .CONT .Q10H [facility] Rx#:[id number] Unasyn Inj 3 GM In NS Inj 100 100 / 100 200 / 200 ML @ 200 mls/hr IV.SIG Q6H [facility] Rx#:[id number] Azithromycin Inj 500 MG In NS 250 / 250 Inj 250 ML @ 250 mls/hr IV.SIG Q24H [facility] Rx#:[id number] Oral 920 / 920 Other: # Voids 3 Date of Last Bowel Movement 02/10/18 Narrative: GENERAL: Young white female in mild distress due to pain and nausea. HEENT: PERRLA, EOMI. No scleral icterus or conjunctival pallor. No lid lag or facial droop. Neck swelling, +tenderness to palpation, +pharyngeal erythema and enlarged tonsils, +exudate. Positive lymph adenopathy CARDIOVASCULAR: Regular rate and rhythm. No obvious murmurs to auscultation. No chest tenderness to palpation. RESPIRATORY: No obvious rhonchi or wheezing. Clear to auscultation. Breath sounds equal bilaterally. GASTROINTESTINAL: Abdomen soft, non-tender, nondistended. BS normal. MUSCULOSKELETAL: Extremities without clubbing, cyanosis, or edema. No obvious deformities. NEUROLOGICAL: Awake, alert and oriented x4. No focal neurologic deficits. Moving both upper and lower extremities spontaneously. Results - Labs CBC & Chem 7: 02/15/18 04:48 02/15/18 04:48 Laboratory Results - last 24 hr 02/15/18 02/15/18 02/15/18 04:48 04:48 04:48 WBC 7.8 RBC 4.53 Hgb 10.7 L Hct 33.6 L MCV 74.2 L MCH 23.7 L MCHC 31.9 L RDW 16.6 Plt Count 233 MPV 7.8 Neut % (Auto) 68.1 Lymph % (Auto) 21.7 [place] % (Auto) 9.7 H Eos % (Auto) 0.1 Baso % (Auto) 0.4 Neut # (Auto) 5.3 Lymph # (Auto) 1.7 [place] # (Auto) 0.7 Eos # (Auto) 0.0 Baso # (Auto) 0.0 WBC Differential . Differential Comment Auto diff final Sodium 139 Potassium 4.1 Chloride 106 Carbon Dioxide 26.8 Anion Gap 6 BUN 10 Creatinine 0.64 Estimated GFR Greater than 89 Random Glucose 99 Calcium 8.3 L Total Bilirubin 0.3 AST 23 ALT 78 H Alkaline Phosphatase 85 Total Protein 7.2 Albumin 2.8 L HIV 1&2 Ab/P24 Ag 4thGn Nonreactive Microbiology 02/12/18 16:45 Throat Throat Culture - Final - Procedures none Assessment and Plan - Assessment (1) Tonsillitis Code(s): J03.90 - Acute tonsillitis, unspecified Status: Acute - Plan 27-year-old female w/ a PMH of Recurrent Tonsillitis who presented to the ER w/ complaints of severe sore throat and decreased PO intake due to pain x2 wks Tonsillitis w/ pharyngitis. Severe follicular tonsillitis -Symptoms ongoing x2wks, failed tx on Amoxicillin, Augment and Clarithromycin. -ER physician noted greyish film and concern for Diptheria, however prob unlikely as very rare and pt reports being vaccinated. continue w/ Isolation -Reports similar episodes of tonsillitis approx 2-3 times per year. -Negative for group a streptococcus screen, negative for throat culture. Negative mono. -Severe lymphadenopathy. Odynophagia. -Continue on IV azithromycin, and also Unasyn as per ID -Consult ID for further evaluation recommendation. Recommends Unasyn -Patient was seen by Dr. Ta ENT recommends to continue IV steroids and IV antibiotics. Plan for tonsillectomy 6-8 weeks. -Continue lidocaine as needed. Liquid diet. -Magic mouthwash 5 times a day. Pain management with [facility]. Constipation -Bowel regimen -Lactulose 1 dose now, bisacodyl suppository 1 dose now DVT Prophylaxis: SCD/Teds Code Status: Full Code Discussed Condition With: Patient, nursing Discharge Planning: Plan to DC home when clinically improved.
[2018-02-15] MEDS ORDERED: Acetaminophen 325 MG Tablet PO PRN (13:29)
--- NOTE | 2018-02-15 16:58 | ECG ---
Date Performed: 02/15/2018 Time Performed: 11:41:02 PTAGE: 27 years EKG: Sinus rhythm NONSPECIFIC ST & T-WAVE ABNORMALITY BORDERLINE ECG NO PREVIOUS TRACING DOCTOR: Marlen Bloom Interpretating Date/Time 02/15/2018 16:57:13
[2018-02-16] MEDS: Ampicillin/Sulbactam Inj 3 GM in Sodium Chloride 0.9% Inj 100 ML IV.SIG SCH ×4 (06:12→23:21)
[2018-02-16] MEDS: Sod Chloride 0.9% Inj 1,000 ML IV.CONT SCH ×2 (06:13→15:04)
[2018-02-16] MEDS: Senna/Docusate Sodium 8.6/50 MG Tablet PO SCH ×2 (09:44→23:20)
[2018-02-16] MEDS: Nystatin/Diphenhydramine/Lidocaine Mouthwash (Adult) 120 ML Botttle SWISH-SWAL SCH ×3 (09:45→18:50)
--- NOTE | 2018-02-16 11:52 | P.PN ---
Subjective Interval history: Follow-up visit pharyngitis, severe follicular tonsillitis. Patient seen and examined today. Patient reports she is doing a lot better. Able to swallow her breakfast grits, wanted to try regular diet. States she is relieved that she is now able to enjoy her food. Patient states that she had some bleeding in the vaginal area yesterday but states that it was from the groin area were and it is raw. Denies pain and discomfort. Denies SOB/ dyspnea. Denies chest pain, palpitations, headaches, dizziness. Denies fevers, chills, n/v/d. Denies dysuria. Physical Exam Vital signs: Vital Signs 02/15/18 12:00 02/15/18 16:00 02/15/18 20:00 Temperature 98.7 F 98.8 F 98.4 F Pulse Rate 69 77 75 Respiratory Rate 16 16 17 Blood Pressure 134/80 129/83 132/88 Pulse Oximetry 99 98 97 02/15/18 23:33 02/16/18 04:00 Temperature 99.6 F 98.2 F Pulse Rate 73 68 Respiratory Rate 16 17 Blood Pressure 132/77 126/74 Pulse Oximetry 99 98 Intake & Output 02/15/18 02/16/18 02/16/18 18:59 06:59 18:59 Intake Total 1700 / 1700 1300 / 1300 Balance 1700 / 1700 1300 / 1300 Intake: IV 1100 / 1100 1300 / 1300 NS Inj 1,000 ML @ 100 mls/hr IV 1000 / 1000 1000 / 1000 .CONT .Q10H [facility] Rx#:[id number] Unasyn Inj 3 GM In NS Inj 100 100 / 100 300 / 300 ML @ 200 mls/hr IV.SIG Q6H [facility] Rx#:[id number] Oral 600 / 600 Narrative: GENERAL: Young white female in mild distress due to pain and nausea. SKIN: Perineum area excoriation. HEENT: PERRLA, EOMI. No scleral icterus or conjunctival pallor. No lid lag or facial droop. Neck swelling, +tenderness to palpation, +pharyngeal erythema and enlarged tonsils, +exudate, white patches bilaterally. Improving, Positive lymph adenopathy CARDIOVASCULAR: Regular rate and rhythm. No obvious murmurs to auscultation. No chest tenderness to palpation. RESPIRATORY: No obvious rhonchi or wheezing. Clear to auscultation. Breath sounds equal bilaterally. GASTROINTESTINAL: Abdomen soft, non-tender, nondistended. BS normal. MUSCULOSKELETAL: Extremities without clubbing, cyanosis, or edema. No obvious deformities. NEUROLOGICAL: Awake, alert and oriented x4. No focal neurologic deficits. Moving both upper and lower extremities spontaneously. Results - Labs CBC & Chem 7: 02/15/18 04:48 02/15/18 04:48 Microbiology 02/12/18 16:45 Throat Throat Culture - Final - Procedures none Assessment and Plan - Assessment (1) Tonsillitis Code(s): J03.90 - Acute tonsillitis, unspecified Status: Acute - Plan 27-year-old female w/ a PMH of Recurrent Tonsillitis who presented to the ER w/ complaints of severe sore throat and decreased PO intake due to pain x2 wks Tonsillitis w/ pharyngitis. Severe follicular tonsillitis -Symptoms ongoing x2wks, failed tx on Amoxicillin, Augment and Clarithromycin. -ER physician noted greyish film and concern for Diptheria, however prob unlikely as very rare and pt reports being vaccinated. Downgrade isolation to droplet. This has been discussed with infectious disease doctor. -Reports similar episodes of tonsillitis approx 2-3 times per year. -Negative for group a streptococcus screen, negative for throat culture. Negative mono. -Severe lymphadenopathy. Odynophagia, improving. -Unasyn as per ID. Azithromycin has been discontinued. -Consult ID for further evaluation recommendation. Recommends Unasyn -Patient was seen by Dr. Ta ENT recommends to continue IV steroids and IV antibiotics. Plan for tonsillectomy 6-8 weeks. -Continue lidocaine as needed. Liquid diet. -Magic mouthwash 5 times a day. Pain management with [facility]. -Diet trial for mechanical soft Constipation -Bowel regimen -Had bowel movement yesterday DVT Prophylaxis: SCD/Teds Code Status: Full code Discussed Condition With: Discussed with patient, nursing, Dr. Joel Discharge Planning: Plan to DC home when clinically improved.
[2018-02-16] MEDS: Nystatin 100,000 UNITS/GM Powder 15 GM Bottle TOPICAL SCH ×3 (15:05→23:19)
[2018-02-17] MEDS: Nystatin/Diphenhydramine/Lidocaine Mouthwash (Adult) 120 ML Botttle SWISH-SWAL SCH ×3 (00:41→12:53)
[2018-02-17] MEDS: Sod Chloride 0.9% Inj 1,000 ML IV.CONT SCH ×2 (00:42→12:52)
[2018-02-17 05:02] LABS: Baso % (Auto) 0.2 % (0.0-2.0); Eos % (Auto) 0.1 % (0.0-4.0); Hematocrit 31.6 % (35.0-46.0); Hemoglobin 10.1 gm/dL (11.6-15.3); Lymph # (Auto) 1.4 th/mm3 (1.0-4.8); Lymph % (Auto) 15.7 % (9.0-44.0); Mean Corpuscular HGB Conc 31.9 % (32.0-36.0); Mean Corpuscular Hemoglobin 23.5 pg (27.0-34.0); Mean Corpuscular Volume 73.6 fL (80.0-100.0); Mono # (Auto) 0.6 th/mm3 (0.0-0.9); Neut # (Auto) 6.8 th/mm3 (1.8-7.7); Platelet Count 237 th/mm3 (150-450); Red Blood Count 4.29 mil/mm3 (4.00-5.30); Red Cell Distribution Width 16.9 % (11.6-17.2); White Blood Count 8.9 th/mm3 (4.0-11.0)
[2018-02-17 05:26] LABS: Anion Gap 6 meq/L (5-15); Blood Urea Nitrogen 13 mg/dL (7-18); Calcium 8.4 mg/dL (8.5-10.1); Carbon Dioxide 26.7 meq/L (21.0-32.0); Chloride 106 meq/L (98-107); Glomerular Filtration Rate Greater Than 89 mL/min (>89); Glucose,Random 121 mg/dL (74-106); Potassium 4.1 meq/L (3.5-5.1); Sodium 139 meq/L (136-145)
[2018-02-17] MEDS: Ampicillin/Sulbactam Inj 3 GM in Sodium Chloride 0.9% Inj 100 ML IV.SIG SCH ×2 (06:37→11:46)
[2018-02-17] MEDS: Nystatin 100,000 UNITS/GM Powder 15 GM Bottle TOPICAL SCH ×2 (09:43→12:54)
[2018-02-17] MEDS: Senna/Docusate Sodium 8.6/50 MG Tablet PO SCH (09:45)
--- NOTE | 2018-02-17 10:32 | P.PN ---
Physical Exam Vital signs: Vital Signs 02/16/18 19:31 02/17/18 00:00 02/17/18 03:32 Temperature 98.7 F 98.3 F 98.4 F Pulse Rate 70 55 L 57 L Respiratory Rate 18 16 18 Blood Pressure 120/80 133/76 133/83 Pulse Oximetry 98 98 97 02/17/18 03:41 02/17/18 08:00 Temperature 98.6 F Pulse Rate 63 Respiratory Rate 14 14 Blood Pressure 123/76 Pulse Oximetry 98 Intake & Output 02/16/18 02/17/18 02/17/18 18:59 06:59 18:59 Intake Total 1100 / 1100 200 / 200 Balance 1100 / 1100 200 / 200 Intake: IV 1100 / 1100 200 / 200 NS Inj 1,000 ML @ 100 mls/hr IV 1000 / 1000 .CONT .Q10H [facility] Rx#:[id number] Unasyn Inj 3 GM In NS Inj 100 100 / 100 200 / 200 ML @ 200 mls/hr IV.SIG Q6H [facility] Rx#:[id number] Results - Labs CBC & Chem 7: 02/17/18 04:00 02/17/18 04:00 Laboratory Results - last 24 hr 02/17/18 02/17/18 04:00 04:00 WBC 8.9 RBC 4.29 Hgb 10.1 L Hct 31.6 L MCV 73.6 L MCH 23.5 L MCHC 31.9 L RDW 16.9 Plt Count 237 MPV 8.0 Neut % (Auto) 77.0 H Lymph % (Auto) 15.7 [place] % (Auto) 7.0 Eos % (Auto) 0.1 Baso % (Auto) 0.2 Neut # (Auto) 6.8 Lymph # (Auto) 1.4 [place] # (Auto) 0.6 Eos # (Auto) 0.0 Baso # (Auto) 0.0 WBC Differential . Differential Comment Auto diff final Sodium 139 Potassium 4.1 Chloride 106 Carbon Dioxide 26.7 Anion Gap 6 BUN 13 Creatinine 0.67 Estimated GFR Greater than 89 Random Glucose 121 H Calcium 8.4 L - Procedures none Assessment and Plan - Assessment (1) Tonsillitis Code(s): J03.90 - Acute tonsillitis, unspecified Status: Acute - Plan 27-year-old female w/ a PMH of Recurrent Tonsillitis who presented to the ER w/ complaints of severe sore throat and decreased PO intake due to pain x2 wks Tonsillitis w/ pharyngitis. Severe follicular tonsillitis -Symptoms ongoing x2wks, failed tx on Amoxicillin, Augment and Clarithromycin. -ER physician noted greyish film and concern for Diptheria, however prob unlikely as very rare and pt reports being vaccinated. Downgrade isolation to droplet. This has been discussed with infectious disease doctor. -Reports similar episodes of tonsillitis approx 2-3 times per year. -Negative for group a streptococcus screen, negative for throat culture. Negative mono. -Severe lymphadenopathy. Odynophagia, improving. -Unasyn as per ID. Azithromycin has been discontinued. -Consult ID for further evaluation recommendation. Recommends Unasyn -Patient was seen by Dr. Ta ENT recommends to continue IV steroids and IV antibiotics. Plan for tonsillectomy 6-8 weeks. -Continue lidocaine as needed. Liquid diet. -Magic mouthwash 5 times a day. Pain management with [facility]. -Diet trial for mechanical soft Constipation -Bowel regimen -Had bowel movement yesterday DVT Prophylaxis: SCD/Teds Discharge Planning: Plan to DC home when clinically improved.
--- NOTE | 2018-02-17 13:07 | P.DS ---
Date of admission: 02/16/18 10:26 Primary care physician: No Primary Care Physician Attending physician on discharge: Arnaud Keys Anticipated date of discharge: 02/17/18 Brief History from admission: This is a 27-year-old female w/ a PMH of Recurrent Tonsillitis who presented to the ER w/ complaints of severe sore throat and decreased PO intake due to pain x2 wks. States she usually has 2-3 episodes like this every year w/ the same symptoms. Was seen at [facility] on several occasions for similar complaints, initially on Amoxicillin, then switched to Augment, later switched to Clarithromycin. Reports associated fever/chills in addition to nausea and vomiting. Unable to swallow liquids due to severe pain. On arrival, BP 151/74 , HR 100, O2 sat 96% on RA, Temp 99.8. CBC unremarkable. BUN 19, GFR 79. LFTs mildly elevated, no previous labs for comparison. CXR with no acute findings. CT Neck w/ prominent lingual tonsil w/ minimal nonspecific 5-7mm lymph nodes. On exam in ER, pt noted to have greyish film over tonsil and thought to have possible Diptheria, however pt has been vaccinated. Strep negative, Throat Culture pending. S/p Zithro in ER DS: Diagnosis - Discharge Diagnosis (1) Tonsillitis Status: Acute DS: Medications - Discharge Medications Prescriptions: amoxicillin-pot clavulanate [Augmentin] 1 tab PO Q12H #14 tab methylprednisolone [Medrol (Nathaniel)] 0 tab PO PER PKG DIR #1 ea DS: Summary Hospital Course: 27-year-old female w/ a PMH of Recurrent Tonsillitis who presented to the ER w/ complaints of severe sore throat and decreased PO intake due to pain x2 wks. patient with severe follicular tonsillitis with pharyngitis. Ongoing symptoms 2 weeks with failed treatment of amoxicillin, Augmentin and clarithromycin. Initially thought to be diphtheria as the ED physician notice grayish film. However it is highly unlikely as patient reports updated vaccination. She was initially on airborne isolation was dropped down to droplet isolation. She usually have 2-3 times per year tonsillitis. She was seen by Dr. Ta ENT recommends to continue steroids and antibiotics. Plan for tonsillectomy 6-8 weeks. Patient is negative for group a streptococcus screen, negative for throat culture, negative for mono. Noticeable severe lymphadenopathy on the right side. Also initially complaining of odynophagia. Patient was started on azithromycin. Infectious disease consulted, patient was started on Unasyn with azithromycin subsequently DC azithromycin. Patient has significantly improved. She will continue to take Magic mouthwash. Pain management with Tylenol or ibuprofen alternatingly. She was placed on mechanical soft diet and is tolerating it. States significantly improved swallowing. As per infectious disease recommendation patient will continue with Augmentin. She also will be given prednisone tapered dose. She will follow-up with Dr. Ta in the outpatient. She will follow-up with her PCP and was recommended to either see [facility] or other free clinics. Patient has met maximal benefits of hospitalization. Clinically stable for discharge. - Time Spent with Patient Total time spent providing and/or coordinating discharge services: Less than 30 minutes - Quality: VTE Deep Vein Thrombosis/Pulmonary Embolism Present on Admission: No Exam Vital signs: Vital Signs 02/16/18 19:31 02/17/18 00:00 02/17/18 03:32 Temperature 98.7 F 98.3 F 98.4 F Pulse Rate 70 55 L 57 L Respiratory Rate 18 16 18 Blood Pressure 120/80 133/76 133/83 Pulse Oximetry 98 98 97 02/17/18 03:41 02/17/18 08:00 02/17/18 11:31 Temperature 98.6 F 98.0 F Pulse Rate 63 64 Respiratory Rate 14 14 16 Blood Pressure 123/76 119/72 Pulse Oximetry 98 98 Intake & Output 02/16/18 02/17/18 02/17/18 18:59 06:59 18:59 Intake Total 1100 / 1100 200 / 200 100 / 100 Balance 1100 / 1100 200 / 200 100 / 100 Intake: IV 1100 / 1100 200 / 200 100 / 100 NS Inj 1,000 ML @ 100 mls/hr IV 1000 / 1000 .CONT .Q10H [facility] Rx#:[id number] Unasyn Inj 3 GM In NS Inj 100 100 / 100 200 / 200 100 / 100 ML @ 200 mls/hr IV.SIG Q6H [facility] Rx#:[id number] Narrative: GENERAL: Young white female, not in any distress SKIN: Perineum area excoriation. HEENT: PERRLA, EOMI. No scleral icterus or conjunctival pallor. No lid lag or facial droop. Neck swelling minimal, +tenderness to palpation, pharyngeal erythema and enlarged tonsils improving, white patches bilaterally. Improving, Positive lymph adenopathy CARDIOVASCULAR: Regular rate and rhythm. No obvious murmurs to auscultation. No chest tenderness to palpation. RESPIRATORY: No obvious rhonchi or wheezing. Clear to auscultation. Breath sounds equal bilaterally. GASTROINTESTINAL: Abdomen soft, non-tender, nondistended. BS normal. MUSCULOSKELETAL: Extremities without clubbing, cyanosis, or edema. No obvious deformities. NEUROLOGICAL: Awake, alert and oriented x4. No focal neurologic deficits. Moving both upper and lower extremities spontaneously. Results Procedures completed during hospitalization: none Labs on day of discharge: Labs from last 24 hours 02/17/18 02/17/18 04:00 04:00 WBC 8.9 RBC 4.29 Hgb 10.1 L Hct 31.6 L MCV 73.6 L MCH 23.5 L MCHC 31.9 L RDW 16.9 Plt Count 237 MPV 8.0 Neut % (Auto) 77.0 H Lymph % (Auto) 15.7 [place] % (Auto) 7.0 Eos % (Auto) 0.1 Baso % (Auto) 0.2 Neut # (Auto) 6.8 Lymph # (Auto) 1.4 [place] # (Auto) 0.6 Eos # (Auto) 0.0 Baso # (Auto) 0.0 WBC Differential . Differential Comment Auto diff final Sodium 139 Potassium 4.1 Chloride 106 Carbon Dioxide 26.7 Anion Gap 6 BUN 13 Creatinine 0.67 Estimated GFR Greater than 89 Random Glucose 121 H Calcium 8.4 L - Impressions ITS Impressions Soft Tissue Neck CT 02/12/18 15:50 CONCLUSION: 1. Prominent lingual tonsils with minimal nonspecific 5 to 7 mm lymph nodes in right left neck. Chest X-Ray 02/12/18 17:46 CONCLUSION: Negative for acute process Liver Ultrasound 02/13/18 00:00 CONCLUSION: 1. Mildly prominent common bile duct in this patient who is status post cholecystectomy. 2. Splenomegaly. Discharge Plan - Discharge Disposition Patient Disposition: 01 Discharge Home - Discharge Condition Condition: Stable - Discharge Order Discharge Orders: Discharge Order (Routine); Ordered 02/17/18 Ordered By: Van Kim - Physicians Team Primary Care Provider: Primary Care Jayjay,Cherrie Attending Provider: Arnaud Keys Other Providers: Geoff Ta MD ; Joelle Joel MD
--- NOTE | 2018-02-17 13:19 | P.PNID ---
Subjective Remarks: much better afebrile pain subsiding Antibiotics: unasyn Allergies/Adverse Reactions: Allergies No Known Allergies Allergy (Unverified 02/12/18 15:39) Objective Vital Signs 02/16/18 19:31 02/17/18 00:00 02/17/18 03:32 Temperature 98.7 F 98.3 F 98.4 F Pulse Rate 70 55 L 57 L Respiratory Rate 18 16 18 Blood Pressure 120/80 133/76 133/83 Pulse Oximetry 98 98 97 02/17/18 03:41 02/17/18 08:00 02/17/18 11:31 Temperature 98.6 F 98.0 F Pulse Rate 63 64 Respiratory Rate 14 14 16 Blood Pressure 123/76 119/72 Pulse Oximetry 98 98 Intake & Output 02/16/18 02/17/18 02/17/18 18:59 06:59 18:59 Intake Total 1100 / 1100 200 / 200 100 / 100 Balance 1100 / 1100 200 / 200 100 / 100 Intake: IV 1100 / 1100 200 / 200 100 / 100 NS Inj 1,000 ML @ 100 mls/hr IV 1000 / 1000 .CONT .Q10H [facility] Rx#:[id number] Unasyn Inj 3 GM In NS Inj 100 100 / 100 200 / 200 100 / 100 ML @ 200 mls/hr IV.SIG Q6H [facility] Rx#:[id number] 02/12/18 16:45 Throat Throat Culture - Final Lab - Hematology Results 02/17/18 04:00 WBC 8.9 RBC 4.29 Hgb 10.1 L Hct 31.6 L MCV 73.6 L MCH 23.5 L MCHC 31.9 L RDW 16.9 Plt Count 237 MPV 8.0 Neut % (Auto) 77.0 H Lymph % (Auto) 15.7 [place] % (Auto) 7.0 Eos % (Auto) 0.1 Baso % (Auto) 0.2 Neut # (Auto) 6.8 Lymph # (Auto) 1.4 [place] # (Auto) 0.6 Eos # (Auto) 0.0 Baso # (Auto) 0.0 WBC Differential . Differential Comment Auto diff final Lab - Chemistry Results 02/17/18 04:00 Sodium 139 Potassium 4.1 Chloride 106 Carbon Dioxide 26.7 Anion Gap 6 BUN 13 Creatinine 0.67 Estimated GFR Greater than 89 Random Glucose 121 H Calcium 8.4 L Imaging: ITS Impressions Soft Tissue Neck CT 02/12/18 15:50 CONCLUSION: 1. Prominent lingual tonsils with minimal nonspecific 5 to 7 mm lymph nodes in right left neck. Chest X-Ray 02/12/18 17:46 CONCLUSION: Negative for acute process Liver Ultrasound 02/13/18 00:00 CONCLUSION: 1. Mildly prominent common bile duct in this patient who is status post cholecystectomy. 2. Splenomegaly. Physical Exam: GENERAL: NAD SKIN: Warm and dry. HEAD: Atraumatic. Normocephalic. EYES: Pupils equal and round. No scleral icterus. No injection or drainage. ENT: No nasal bleeding or discharge. Mucous membranes pink and moist. Much improved swelling and erythema of tonsils especially R side, graham membrabnes shrunk over 50% NECK: Trachea midline. No JVD. + b/l cervical lymphadenopathy RESPIRATORY: No accessory muscle use. GASTROINTESTINAL: benign MUSCULOSKELETAL: Extremities without clubbing, cyanosis, or edema. No obvious deformities. NEUROLOGICAL: Awake and alert. Normal speech. PSYCHIATRIC: Appropriate mood and affect; insight and judgment normal. Assessment and Plan - Plan 2 weeks pharyngitis non resolving on multiplae abx, splenomegaly splenomegaly is borderline Differentila include tonsilitist, including viral dyphtheria uinlikely in this immunised pt EKG not sugg of myocarditixs vaginal dc, dburning - probably yeast infx aw abx fluconazole given Monospot, hepatitis, HIV Lissy neg dc Unasyn, OK to dc home on 1 more week of augmentin to complete 10 day course repeat Fluconazol if needed awaiting viral load to r/o acute retroviral dw primary team: OK to dc fu with ENT regarding tonsillectomy
== END 2018-02-17 17:34 | disposition home or self-care (01) ==
LOC: NEPD 14:36 → NEDA 14:36 → NEPHCDU 19:50 → HCIS 22:54 → NEPHCDU 22:55
PROVIDERS: ADMIT Hospitalist; ATTEND Hospitalist